=== PATIENT | female | born 1960 | race Caucasian/White ===

== ENCOUNTER 2017-04-14 13:22 | Emergency (ER) | payer OTHER ==
[~2017-04-14] VITALS: Ht 157.5 cm; Wt 82.5 kg
[2017-04-14 13:26] VITALS: Ht 157.5 cm; Wt 82.5 kg
--- NOTE | 2017-04-14 15:35 | ERD ---
ER Documentation Chief Complaint Date/Time DATE: 04/14/17 TIME: 15:32 Chief Complaint pt bib family with c/o cough and sore thoat since Friday HPI This is a 56-year-old female presents to the ER with a cough and sore throat since Friday. Per patient cough is worsening and is severe, worse at night. Patient states that cough does not let her sleep at night. Cough is dry and constant. Patient denies any chest pain, wheezing, shortness of breath. She denies any fevers or chills. Patient has a past medical history of hypertension , she takes benazepril and hydrochlorothiazide daily for this. ROS 12 point review of systems was done, all negative except per HPI. Medications Home Meds Active Scripts Guaifenesin-Dextromethorphan* (Robitussin* DM) 100MG/10MG/5ML Syrup, 10 ML PO Q4H Y for COUGH for 3 Days, ML Prov:RYAN HERNANDEZ 04/14/17 Methylprednisolone* (Medrol* DOSE PACK) 4 Mg/Dose-Pack Tab.ds.pk, 4 MG PO . DIRECTED for 6 Days, PACKET Prov:MIQUEL HERNANDEZNA C 04/14/17 Allergies Allergies: Coded Allergies: No Known Allergy (Unverified , 04/14/17) PMhx/Soc History of Surgery: No Anesthesia Reaction: No Hx Neurological Disorder: No Hx Respiratory Disorders: No Hx Cardiac Disorders: Yes (htn) Hx Psychiatric Problems: No Hx Miscellaneous Medical Probl: No Hx Alcohol Use: No Hx Substance Use: No Hx Tobacco Use: No Smoking Status: Never smoker Physical Exam Vitals Vital Signs Date Time Temp Pulse Resp B/P Pulse Ox O2 Delivery O2 Flow Rate FiO2 04/14/17 13:26 98.8 86 16 155/87 97 Physical Exam GENERAL: The patient is well-developed, well-nourished, in no acute distress. NECK: Cervical spine is non tender with no step off. Supple, no nuchal rigidity HEENT: Atraumatic. Pupils equal, round and reactive to light. Extraocular muscles are grossly intact. Conjunctivae pink, no discharge. Bilateral tympanic membranes are clear with no evidence of erythema, effusion or dulling of the light reflex. Tonsilar erythema with no exudates or uvular deviation. Clear rhinorrhea. RESPIRATORY: Clear to auscultation bilaterally. There are no rales, wheezes or rhonchi. HEART: Regular rate and rhythm. No murmurs, clicks, rubs or gallops. EXTREMITIES: No clubbing or cyanosis. Full range of motion. Grossly neurovascularly intact. NEUROLOGIC: Alert and oriented. Cranial nerves II through XII are intact. SKIN: There is no rash. The skin is warm and dry. Results 24 hrs [place] [id number] Radiology Main Line: [phone] DIAGNOSTIC IMAGING REPORT Patient: TODD LIPSCOMB : 1960 Age: 56 Sex: F MR #: [id number] DOS: 04/14/17 0000 Ordering MD: RYAN HERNANDEZ. MINDY Location: [facility] Room/Bed: PROCEDURE: XR Chest. CLINICAL INDICATION: Cough. TECHNIQUE: Single frontal view. COMPARISON: None. FINDINGS: The lungs are clear. The heart size is normal. There is calcification in the aorta consistent with atherosclerosis. There is no pleural effusion. There is no pneumothorax. IMPRESSION: 1. Atherosclerosis. 2. Otherwise normal chest radiograph. RPTAT: QQ .Bret Golden MD, MD Date Time Electronically viewed and signed by .Bret Golden MD, MD on 04/14/2017 16:51 .R/ CC: RYAN HERNANDEZ Procedures/MDM Differential diagnosis includes but is not limited to; Viral URI, allergic rhinitis, bronchitis, pertussis,pneumonia. This is likely viral in etiology. Clinical suspicion for pneumonia is low as patient appears well, is not hypoxic or in any respiratory distress. Additionally, patients physical examination is benign. Plan was discussed with patient they understand and agree. Patient needs to follow up with PCP in 1-2 days or return to ER sooner if symptoms worsen. Departure Diagnosis: Primary Impression: Upper respiratory infection Condition: Stable RYAN HERNANDEZ Apr 14, 2017 15:35
--- NOTE | 2017-04-14 16:51 | RADRPT ---
PROCEDURE: XR Chest. CLINICAL INDICATION: Cough. TECHNIQUE: Single frontal view. COMPARISON: None. FINDINGS: The lungs are clear. The heart size is normal. There is calcification in the aorta consistent with atherosclerosis. There is no pleural effusion. There is no pneumothorax. IMPRESSION: 1. Atherosclerosis. 2. Otherwise normal chest radiograph. RPTAT: QQ .Bret Golden MD, MD Date Time Electronically viewed and signed by .Bret Golden MD, MD on 04/14/2017 16:51 .R/
[2017-04-14] MEDS ORDERED: MED4DP PO (16:54)
[2017-04-14] MEDS ORDERED: UDROBDM PO (16:54)
== END 2017-04-14 17:00 | disposition home or self-care (01) ==
LOC: FTE 13:22
DX: J06.9 Acute upper respiratory infection, unspecified (principal); I10 Essential (primary) hypertension
CPT/HCPCS: 71010; Z7502